=== PATIENT | female | born 1990 | race Caucasian/White ===

== ENCOUNTER 2017-08-19 05:45 | Day surgery (SDC) | payer MEDICAID ==
[2017-08-19 06:17] LABS: ADD MAN DIFF? NO
[2017-08-19 06:28] LABS: BASOPHIL # 0.1 10^3/ul (0.0-0.1); BASOPHILS % 0.5 % (0.0-2.0); EOSINOPHILS # 0.6 10^3/ul (0.0-0.5); EOSINOPHILS % 5.8 % (0.0-7.0); HEMATOCRIT 38.9 % (37.0-47.0); HEMOGLOBIN 12.9 g/dl (12.0-16.0); LYMPHOCYTES # 2.8 10^3/ul (0.8-2.9); LYMPHOCYTES % 28.8 % (15.0-51.0); MEAN CORPUSCULAR HEMOGLOBIN 29.3 pg (29.0-33.0); MEAN CORPUSCULAR HGB CONC 33.2 g/dl (32.0-37.0); MEAN CORPUSCULAR VOLUME 88.2 fl (82.0-101.0); MEAN PLATELET VOLUME 9.1 fl (7.4-10.4); MONOCYTE # 0.6 10^3/ul (0.3-0.9); MONOCYTES % 5.9 % (0.0-11.0); NEUTROPHIL # 5.7 10^3/ul (1.6-7.5); NEUTROPHILS % 58.7 % (39.0-77.0); PLATELET COUNT 308 10^3/UL (140-415); RED BLOOD COUNT 4.41 10^6/ul (4.20-5.40); RED CELL DISTRIBUTION WIDTH 11.9 % (11.5-14.5)
[2017-08-19 06:28] LABS: WHITE BLOOD COUNT 9.7 10^3/ul (4.8-10.8)
[2017-08-19] MEDS ORDERED: PROPOFOL 20 ML (06:49)
[2017-08-19] MEDS ORDERED: LIDOCAINE 2% (SDV) 5 ML INJ (06:50)
[2017-08-19] MEDS ORDERED: CEFAZOLIN 1 GM INJ (06:51)
[2017-08-19] MEDS ORDERED: DEXAMETHASONE 4 MG/ML 1 ML INJ (06:52)
[2017-08-19] MEDS ORDERED: METOCLOPRAMIDE 10 MG INJ (06:52)
[2017-08-19] MEDS ORDERED: ONDANSETRON 4 MG INJ (06:52)
[2017-08-19] MEDS ORDERED: FENTAnyl 50 MCG/ML VIAL (06:53)
[2017-08-19] MEDS ORDERED: FENTAnyl 50 MCG/ML VIAL IV (07:30)
[2017-08-19] MEDS ORDERED: HYDROmorphONE (0.2 MG/ML) 10ML SYG IV ×2 (07:30)
[2017-08-19] MEDS ORDERED: KETOROLAC 30 MG INJ (07:47)
[2017-08-19] MEDS: KETOROLAC 30 MG INJ IV (08:42)
== END 2017-08-19 09:55 | disposition home or self-care (01) ==
LOC: SDS 05:45
DX: Z30.2 Encounter for sterilization (principal)
CPT/HCPCS: 58565; 84702; 84703; 85025; 86850; 86900; 86901; 88300